=== PATIENT | female | born 1975 | race Caucasian/White ===

== ENCOUNTER 2018-11-14 09:42 | Emergency (ER) | payer BC ==
[~2018-11-14] VITALS: Ht 165.1 cm; Wt 56.7 kg
[2018-11-14 09:51] VITALS: BP 93/79
== END 2018-11-14 10:13 | disposition home or self-care (01) ==
LOC: ER 09:56
DX: S00.83XA Contusion of other part of head, initial encounter (principal); F17.200 Nicotine dependence, unspecified, uncomplicated; Z60.2 Problems related to living alone; V49.9XXA Car occupant (driver) (passenger) injured in unspecified traffic accident, initial encounter; Y93.89 Activity, other specified; Y92.89 Other specified places as the place of occurrence of the external cause; Y99.8 Other external cause status
CPT/HCPCS: 99282; A4606; Z7610

== ENCOUNTER 2019-07-24 12:21 | Emergency (ER) | payer BC ==
[~2019-07-24] VITALS: Ht 165.1 cm; Wt 56.7 kg
--- NOTE | 2019-07-24 12:30 | NUR ---
patient BIBRA, found in a curve falling asleep, in no apparent distress, patient denies taking alcohol, and drugs. IOn room air, breathing evenly and unlabored. kept comfortable, will continue to monitor accordingly.
[2019-07-24 13:26] VITALS: BP 129/74
--- NOTE | 2019-07-24 13:27 | NUR ---
Patient discharged to home in stable condition. Written and verbal after care instructions given. Patient verbalizes understanding of instruction.
== END 2019-07-24 13:27 | disposition home or self-care (01) ==
LOC: ER 12:25
DX: Z02.89 Encounter for other administrative examinations (principal); F17.200 Nicotine dependence, unspecified, uncomplicated; Z60.2 Problems related to living alone

== ENCOUNTER 2020-06-13 11:34 | Emergency (ER) | payer BC ==
[~2020-06-13] VITALS: Ht 165.1 cm; Wt 56.7 kg
--- NOTE | 2020-06-13 11:37 | NUR ---
BIBA RA [id number] From "[facility] - Slipped on wet tile in BR fell forward and hit forehead, L arm and back", to ER bed 10, hooked to monitor, changed to gown, warm blanket provided, patient aao x 4, awaiting MD otoole
--- NOTE | 2020-06-13 11:48 | NUR ---
Dr Soils at bedside
[2020-06-13] MEDS ORDERED: ACETAMINOPHEN ES 500 MG TABLET ONE (12:08)
--- NOTE | 2020-06-13 12:12 | NUR ---
PATIENT SIGNED WAIVER, LMP 06/10/2020
[2020-06-13] MEDS: ACETAMINOPHEN ES 500 MG TABLET PO ONE (12:13)
--- NOTE | 2020-06-13 12:14 | NUR ---
WHEELED OUT VIA RNEY FOR CT SCAN
[2020-06-13 13:35] VITALS: BP 127/70
--- NOTE | 2020-06-13 13:35 | NUR ---
Patient discharged to home in stable condition. Written and verbal after care instructions given. Patient verbalizes understanding of instruction.
== END 2020-06-13 13:37 | disposition home or self-care (01) ==
LOC: ER 11:39
DX: S01.81XA Laceration without foreign body of other part of head, initial encounter (principal); S30.1XXA Contusion of abdominal wall, initial encounter; S40.021A Contusion of right upper arm, initial encounter; R51 Headache; Z60.2 Problems related to living alone; W01.198A Fall on same level from slipping, tripping and stumbling with subsequent striking against other object, initial encounter; Y93.89 Activity, other specified; Y92.59 Other trade areas as the place of occurrence of the external cause; Y99.8 Other external cause status
CPT/HCPCS: 70450-TC; 72125-TC